=== PATIENT | male | born 1980 | race Caucasian/White ===

== ENCOUNTER 2019-09-17 21:40 | Emergency (ER) | payer OTHER ==
[2019-09-17] MEDS ORDERED: BABY ASPIRIN 81 MG CHEW PO ONE (21:49)
[2019-09-17 22:26] LABS: Absolute Neutrophil Ct (ANC) 5.26 (1.4-6.9); BASOPHIL % 0.4 % (0.0-0.4); Basophil (Absolute #) 0.03 (0-0.4); Eosinophil % 1.7 % (0.00-5.0); Eosinophil (Absolute #) 0.14 (0-0.5); Hematocrit 45.9 % (42-50); Hemoglobin 16.5 gm/dl (12.5-18.0); Lymphocyte (Absolute #) 2.28 (1.0-4.6); Lymphocytes % 27.5 % (24.0-44.0); Mean Cell Volume 88.3 fl (78-100); Mean Corpuscular Hemoglobin 31.7 pg (26-32); Mean Corpuscular Hgb Concent. 35.9 g/dl (32-36); Monocyte (Absolute #) 0.59 (0.0-1.3); Monocytes % 7.1 % (0.0-12.0); Neutrophil % 63.3 % (36.0-66.0); Platelet Count 194 K/mm3 (150-450); Red Cell Distribution Width 12.6 % (11.5-14.0); White Blood Count 8.3 K/mm3 (4.0-10.5)
[2019-09-17 22:38] LABS: ALBUMIN 4.5 g/dL (3.5-5.0); ALKALINE PHOSPHATASE 110 U/L (38-126); ANION GAP 13.5 MEQ/L (5-15); BLOOD UREA NITROGEN 11 mg/dL (9-20); CHLORIDE 101 mmol/L (98-107); Calcium 9.1 mg/dL (8.4-10.2); Carbon Dioxide 27 mmol/L (22-30); Creatinine 1 0.62 mg/dL (0.66-1.25); Glucose 384 mg/dL (74-106); Potassium 3.9 mmol/L (3.5-5.1); SGOT/AST 72 U/L (17-59); SGPT/ALT 159 U/L (0-50); SODIUM 137 mmol/L (137-145); Total Protein 8.1 g/dL (6.3-8.2)
--- NOTE | 2019-09-17 22:39 | ERPHSYRPT ---
- History of Present Illness Time Seen by Provider: 09/17/19 21:50 Historian: patient Exam Limitations: no limitations Patient Subjective Stated Complaint: pt states he has been having chest tightness, lt arm and lt leg pain for the last week Triage Nursing Assessment: pt alert and oriented, answers questions approp. pt ambulatory with steady gait noted. respirations nonlabored with lungs cta. skin pink warm and dry. heart rate 80, sinus rhythm on monitor. Physician History: Patient is a 19-year-old male presents to our ED for evaluation of chest tightness. Patient also experiences an ache of his left lower extremity. Patient has been experiencing symptoms for approximately 1 week. Tightness is associated with an ache of his left arm and leg. No associated nausea or vomiting. No diaphoresis. No trauma. No fevers. Patient denies chest pain per se. No shortness of breath. Pain improved with activity. Patient is currently asymptomatic. He voices no other complaints at this time. Timing/Duration: week(s), intermittent, improved Quality: aching Chest Pain Radiation: arm Severity of Pain-Current: mild Modifying Factors: Improves With: nothing Associated Symptoms: palpitations, No nausea, No abdominal pain, No shortness of breath, No fever, No syncope, No dizziness, No back pain (Patient had a cardiac stress test approximately 5 years ago.) Nitro Today/Relief: no nitro taken today Aspirin Treatment Today: 325 mg x 1, provided by ED Allergies/Adverse Reactions: Penicillins Allergy (Verified 09/17/19 22:02) Home Medications: Canagliflozin/Metformin HCl [Invokamet 50-1,000 mg Tablet] 1 each PO DAILY 09/16 [History] Lisinopril 5 mg [Zestril 5 MG] 5 mg PO DAILY 09/17/19 [History] Hx Tetanus, Diphtheria Vaccination/Date Given: Yes Hx Influenza Vaccination/Date Given: No Hx Pneumococcal Vaccination/Date Given: No Immunizations Up to Date: Yes Travel Risk - International Travel Have you traveled outside of the country in past 3 weeks: No (N) If Yes where:: [facility] - Coronavirus Screening Has patient experienced Coronavirus symptoms: Yes Symptoms experienced: muscle pain - Review of Systems Constitutional: No Fever, No Chills Eyes: No Symptoms Ears, Nose, & Throat: No Symptoms Respiratory: No Symptoms, No Cough, No Dyspnea Cardiac: No Symptoms, No Chest Pain, No Edema, No Syncope Abdominal/Gastrointestinal: No Symptoms, No Abdominal Pain, No Nausea, No Vomiting, No Diarrhea Genitourinary Symptoms: No Dysuria Musculoskeletal: No Symptoms, No Back Pain, No Neck Pain Skin: No Symptoms, No Rash Neurological: No Symptoms, No Dizziness, No Focal Weakness, No Sensory Changes Psychological: No Symptoms Endocrine: No Symptoms All Other Systems: Reviewed and Negative - Past Medical History Pertinent Past Medical History: Yes Cardiac History: Hypertension Endocrine Medical History: Diabetes Type II - Past Surgical History Past Surgical History: Yes Other Surgical History: vasectomy - Social History Smoking Status: Former smoker Drug Use: none Patient Lives Alone: No - Nursing Vital Signs Nursing Vital Signs: Initial Vital Signs Pulse Rate 89 09/17/19 21:41 Respiratory Rate 18 09/17/19 21:41 Blood Pressure 165/104 09/17/19 21:41 O2 Sat by Pulse Oximetry 97 09/17/19 21:41 Pain Scale Pain Intensity 1 - Physical Exam General Appearance: no apparent distress, alert Eye Exam: PERRL/EOMI, eyes nml inspection Ears, Nose, Throat Exam: normal ENT inspection, moist mucous membranes Neck Exam: normal inspection, non-tender, supple, full range of motion Respiratory Exam: normal breath sounds, lungs clear, No respiratory distress Cardiovascular Exam: regular rate/rhythm, normal heart sounds Gastrointestinal/Abdomen Exam: soft, No tenderness, No mass Back Exam: normal inspection, No CVA tenderness, No vertebral tenderness Extremity Exam: normal inspection, normal range of motion Neurologic Exam: alert, oriented x 3, cooperative, normal mood/affect, sensation nml, No motor deficits Skin Exam: normal color, warm, dry SpO2: 97 - Course Nursing assessment & vital signs reviewed: Yes EKG Interpreted by Me: RATE, Sinus Rhythm, NORMAL AXIS, NORMAL INTERVALS - Radiology Exams Chest X-ray Interpretation: Interpreted by me (No effusion pneumothorax. No consolidation infiltrates. No bony pathology. Normal-appearing chest x-ray.) Ordered Tests: Active Orders 24 hr Category Date Time Status Currency Machine Operator STAT Care 09/17/19 21:50 Active Clean Catch Urine Specimen STAT Care 09/17/19 21:49 Active EKG-ER Only STAT Care 09/17/19 21:49 Active IV Insertion STAT Care 09/17/19 21:49 Active Isolation, Initiate & Maintain Q12H Care 09/17/19 22:01 Active Pulse Oximetry (ED) STAT Care 09/17/19 21:49 Active CHEST 1 VIEW (PORTABLE) Stat Exams 09/17/19 21:50 Taken CBC W DIFF Stat Lab 09/17/19 22:20 Completed CMP Stat Lab 09/17/19 22:20 Completed D-DIMER QUANTITATIVE Stat Lab 09/17/19 22:20 Completed LIPASE Stat Lab 09/17/19 22:20 Completed TROPONIN Q3H Lab 09/17/19 22:20 Completed TROPONIN Q3H Lab 09/18/19 01:00 Ordered TROPONIN Q3H Lab 09/18/19 04:00 Ordered TROPONIN Q3H Lab 09/18/19 07:00 Ordered TROPONIN Q3H Lab 09/18/19 10:00 Ordered Urine Triage Profile Stat Lab 09/17/19 22:50 Received Medication Summary Generic Name Dose Route Start Last Admin Trade Name Freq PRN Reason Stop Dose Admin Sodium Chloride 1,000 mls @ 999 mls/hr 09/17/19 22:44 09/17/19 22:49 Sodium Chloride 0.9% 1000 Ml IV 09/17/19 23:44 999 mls/hr .Q1H1M STA Administration Discontinued Medications Generic Name Dose Route Start Last Admin Trade Name Freq PRN Reason Stop Dose Admin Aspirin 324 mg 09/17/19 21:49 09/17/19 22:03 Baby Aspirin 81 Mg Chew PO 09/17/19 21:50 324 mg STAT ONE Administration Sodium Chloride Confirm 09/17/19 22:46 Sodium Chloride 0.9% 1000 Ml Administered 09/17/19 22:47 Dose 1,000 mls @ ud .ROUTE .STK-MED ONE Lab/Rad Data: Laboratory Result Diagrams 09/17/19 22:20 09/17/19 22:20 Laboratory Results 09/17/19 09/17/19 09/17/19 Range/Units 22:20 22:20 22:20 WBC (4.0-10.5) K/mm3 RBC (4.1-5.6) M/mm3 Hgb (12.5-18.0) gm/dl Hct (42-50) % MCV (78-100) fl MCH (26-32) pg MCHC (32-36) g/dl RDW (11.5-14.0) % Plt Count (150-450) K/mm3 MPV (7.5-11.0) fl Gran % (36.0-66.0) % Eos # (Auto) (0-0.5) Absolute Lymphs (auto) (1.0-4.6) Absolute Monos (auto) (0.0-1.3) Lymphocytes % (24.0-44.0) % Monocytes % (0.0-12.0) % Eosinophils % (0.00-5.0) % Basophils % (0.0-0.4) % Absolute Granulocytes (1.4-6.9) Basophils # (0-0.4) D-Dimer 306 (215-500) ng/mL Sodium (137-145) mmol/L Potassium (3.5-5.1) mmol/L Chloride (98-107) mmol/L Carbon Dioxide (22-30) mmol/L Anion Gap (5-15) MEQ/L BUN (9-20) mg/dL Creatinine (0.66-1.25) mg/dL Estimated GFR ML/MIN Glucose (74-106) mg/dL Calcium (8.4-10.2) mg/dL Total Bilirubin (0.2-1.3) mg/dL AST (17-59) U/L ALT (0-50) U/L Alkaline Phosphatase (38-126) U/L Troponin I < 0.012 (0.000-0.034) ng/mL Serum Total Protein (6.3-8.2) g/dL Albumin (3.5-5.0) g/dL Lipase 102 (23-300) U/L 09/17/19 09/17/19 Range/Units 22:20 22:20 WBC 8.3 (4.0-10.5) K/mm3 RBC 5.20 (4.1-5.6) M/mm3 Hgb 16.5 (12.5-18.0) gm/dl Hct 45.9 (42-50) % MCV 88.3 (78-100) fl MCH 31.7 (26-32) pg MCHC 35.9 (32-36) g/dl RDW 12.6 (11.5-14.0) % Plt Count 194 (150-450) K/mm3 MPV 12.0 H (7.5-11.0) fl Gran % 63.3 (36.0-66.0) % Eos # (Auto) 0.14 (0-0.5) Absolute Lymphs (auto) 2.28 (1.0-4.6) Absolute Monos (auto) 0.59 (0.0-1.3) Lymphocytes % 27.5 (24.0-44.0) % Monocytes % 7.1 (0.0-12.0) % Eosinophils % 1.7 (0.00-5.0) % Basophils % 0.4 (0.0-0.4) % Absolute Granulocytes 5.26 (1.4-6.9) Basophils # 0.03 (0-0.4) D-Dimer (215-500) ng/mL Sodium 137 (137-145) mmol/L Potassium 3.9 (3.5-5.1) mmol/L Chloride 101 (98-107) mmol/L Carbon Dioxide 27 (22-30) mmol/L Anion Gap 13.5 (5-15) MEQ/L BUN 11 (9-20) mg/dL Creatinine 0.62 L (0.66-1.25) mg/dL Estimated GFR > 60.0 ML/MIN Glucose 384 H (74-106) mg/dL Calcium 9.1 (8.4-10.2) mg/dL Total Bilirubin 0.90 (0.2-1.3) mg/dL AST 72 H (17-59) U/L ALT 159 H (0-50) U/L Alkaline Phosphatase 110 (38-126) U/L Troponin I (0.000-0.034) ng/mL Serum Total Protein 8.1 (6.3-8.2) g/dL Albumin 4.5 (3.5-5.0) g/dL Lipase (23-300) U/L - Progress Progress: improved Progress Note: 09/17/19 23:23 Patient reassessed. Blood pressure normalized. Patient currently asymptomatic. Initial troponin negative. EKG negative for acute pathology. Work-up reveals hyper glycemia. Patient decided he prefers to go home. Patient declined second troponin. We complaint the patient that his sugars are elevated however patient states that he will follow-up with his primary care doctor reassesses blood sugar levels. Patient is requesting discharge he states that he will be calling his to pick him up. Patient is of sound mind. He is alert and oriented x4. Patient appropriate to make independent and informed medical decisions. Patient understands the risks of increased morbidity, increased mortality, increased short and long-term disability including . Patient understands that these risks are possible because of leaving prematurely before completion of complete examination. Counseled pt/family regarding: lab results, diagnosis, need for follow-up, rad results - Departure Departure Disposition: AMA Clinical Impression: ACS (acute coronary syndrome), Chest pain, Hyperglycemia, Heart palpitations Condition: Stable Critical Care Time: No Referrals: EZEQUIEL GRISSOM [Primary Care Provider] - Additional Instructions: Please follow-up with your family doctor within 48 hours for reevaluation. Please be sure to take all of your diabetic medication as prescribed. You may require an outpatient cardiac stress test. Please follow-up with your family physician to consider further work-up heart. Discharge/Care Plan JOSE DAILEY was seen on 09/17/19 in the Emergency Room. The patient was counseled regarding Diagnosis,Lab results, Imaging studies, need for follow up and when to return to the Emergency Room. Prescriptions given: Discharge Note I have spoken with the patient and/or caregivers. I have explained the patient' s condition, diagnosis and treatment plan based on the information available to me at this time. I have answered the patient's and/or caregiver's questions and addressed any concerns. The patient and/or caregivers have as good understanding of the patient's diagnosis, condition and treatment plan as can be expected at this point. The vital signs have been stable. The patient's condition is stable and appropriate for discharge from the emergency department. The patient will pursue further outpatient evaluation with the primary care physician or other designated or consulting physician as outlined in the discharge instructions. The patient and/or caregivers are agreeable to this plan of care and follow-up instructions have been explained in detail. The patient and/or caregivers have received these instruction. The patient/and or caregivers are aware that any significant change in condition or worsening of symptoms should prompt an immediate return to this or the closest emergency department or call 911.
[2019-09-17] MEDS ORDERED: Sodium Chloride 0.9% 1000 ML 1,000 ML IV STA (22:44)
[2019-09-17] MEDS ORDERED: Sodium Chloride 0.9% 1000 ML 1,000 ML ONE (22:46)
[2019-09-17 23:17] LABS: Amphetamine,Urine NEGATIVE (NEGATIVE); Barbiturate,Urine NEGATIVE (NEGATIVE); Benzodiazepine,Urine NEGATIVE (NEGATIVE); Cocaine,Urine NEGATIVE (NEGATIVE); Methadone,Urine NEGATIVE (NEGATIVE); Opiate,Urine NEGATIVE (NEGATIVE); PCP,Urine NEGATIVE (NEGATIVE); THC,Urine NEGATIVE (NEGATIVE)
[2019-09-17 23:45] VITALS: BP 130/81; PULSE 74; O2SAT 99
--- NOTE | 2019-09-18 07:28 | XRAY ---
Indication: Chest pain. Comparison: None Portable chest demonstrates normal heart, lungs, and bony thorax.
== END 2019-09-17 23:50 | disposition left against medical advice (07) ==
LOC: ED 21:40
DX: I24.9 Acute ischemic heart disease, unspecified (principal); R07.9 Chest pain, unspecified; R00.2 Palpitations; Z79.899 Other long term (current) drug therapy; I10 Essential (primary) hypertension; E11.65 Type 2 diabetes mellitus with hyperglycemia
CPT/HCPCS: 36000; 36415; 71045; 80053; 80307; 83690; 84484; 85025; 85379; 93005; 93041; 94760; 96360; 99284; A9270-GY

== ENCOUNTER 2022-03-19 22:57 | Emergency (ER) | payer BC, OTHER ==
[2022-03-19] MEDS ORDERED: BABY ASPIRIN 81 MG CHEW PO ONE ×2 (23:12→23:22)
[2022-03-19] MEDS ORDERED: Sodium Chloride 0.9% 1000 ML 1,000 ML IV STA (23:12)
[2022-03-19 23:25] LABS: Absolute Neutrophil Ct (ANC) 4.02 x10^3/uL (1.4-6.9); Basophil (Absolute #) 0.04 x10^3/uL (0-0.4); Eosinophil % 1.9 % (0.00-5.0); Eosinophil (Absolute #) 0.12 x10^3/uL (0-0.5); Hematocrit 46.2 % (42-50); Hemoglobin 16.3 g/dL (12.5-18.0); Lymphocyte (Absolute #) 1.81 x10^3/uL (1.0-4.6); Mean Cell Volume 89.9 fL (78-100); Mean Corpuscular Hemoglobin 31.7 pg (26-32); Mean Corpuscular Hgb Concent. 35.3 g/dL (32-36); Mean Platelet Volume 10.7 fL (7.5-11.0); Monocyte (Absolute #) 0.47 x10^3/uL (0.0-1.3); Monocytes % 7.3 % (0.0-12.0); Platelet Count 205 x10^3/uL (150-450); Red Blood Count 5.14 x10^6/uL (4.1-5.6); Red Cell Distribution Width 12.2 % (11.5-14.0); White Blood Count 6.5 x10^3/uL (4.0-10.5)
[2022-03-19] MEDS ORDERED: Sodium Chloride 0.9% 1000 ML 1,000 ML ONE (23:27)
[2022-03-19] MEDS ORDERED: SUBLIMAZE 100 MCG/2 ML ONE (23:27)
[2022-03-19] MEDS ORDERED: BABY ASPIRIN 81 MG CHEW ONE (23:27)
[2022-03-19] MEDS: SUBLIMAZE 100 MCG/2 ML IV ONE (23:29)
[2022-03-19 23:39] LABS: ALBUMIN 4.8 g/dL (3.5-5.0); ALKALINE PHOSPHATASE 97 U/L (38-126); AMYLASE 95 U/L (30-110); ANION GAP 14.5 MEQ/L (5-15); BLOOD UREA NITROGEN 14 mg/dL (9-20); CHLORIDE 103 mmol/L (98-107); Calcium 8.9 mg/dL (8.4-10.2); Carbon Dioxide 24 mmol/L (22-30); Creatinine 1 0.67 mg/dL (0.66-1.25); EST GLOMERULAR FILTRATION RATE > 60.0 ML/MIN; Glucose 189 mg/dL (74-106); LIPASE 145 U/L (23-300); MAGNESIUM 2.1 mg/dL (1.6-2.3); NT PRO BNP 16.7 pg/mL (0-450); Potassium 3.8 mmol/L (3.5-5.1); SGOT/AST 69 U/L (17-59); SGPT/ALT 129 U/L (0-50); SODIUM 138 mmol/L (137-145); Total Protein 8.2 g/dL (6.3-8.2)
[2022-03-19 23:41] LABS: D-DIMER QUANTITATIVE < 0.19 mg/L (0.0-0.50); INR 0.98 (0.8-3.0); PROTIME 10.4 SECONDS (9.4-12.5)
[2022-03-20 00:09] VITALS: BP 123/59; PULSE 67; O2SAT 96
--- NOTE | 2022-03-20 00:36 | ERPHSYRPT ---
- History of Present Illness Time Seen by Provider: 03/19/22 23:05 Historian: patient Exam Limitations: no limitations Patient Subjective Stated Complaint: I had some left arm pain and tingling sensation and it came across into my chest, my heart felt fluttery and I had so me dizziness. Triage Nursing Assessment: Pt ambulated into ER without diff, at bedside. Pt c/o left arm tingling which came across to the chest and was midsternal, had some sob, dizziness and felt as is if heart was fluttery. Pt alert and oriented x3, pleasant and cooperative. Lung hardin clear, heart tones reg. Pt denies any actual pain at this time. Physician History: Patient is a 41-year-old male diabetic who presents with a complaint of chest pain. He says it started with aching in his left arm progressed to substernal chest pain associated with some dizziness and shortness of breath. He had some nausea but has had no vomiting. He has had similar episodes in the past and work-ups have been negative. He has been told to see a datastage consultant but has not. Timing/Duration: today Activities at Onset: activity, emotional stress Quality: fullness, pressure, throbbing Location: substernal Chest Pain Radiation: arm Severity of Pain-Max: moderate Severity of Pain-Current: mild Modifying Factors: Improves With: rest, aspirin Associated Symptoms: palpitations, dizziness Prior Chest Pain/Cardiac Workup: no prior cardiac workup Nitro Today/Relief: no nitro taken today Aspirin Treatment Today: 81 mg x 1, provided at home Allergies/Adverse Reactions: Penicillins Allergy (Verified 03/19/22 23:13) Home Medications: Lisinopril 5 mg [Zestril 5 MG] 10 mg PO DAILY 09/17/19 [History] Dapagliflozin Propanediol [Farxiga] 5 mg PO DAILY 03/19/22 [History] Glimepiride 2 mg [Amaryl 2 MG] 1 tab PO DAILY 03/19/22 [History] Metformin HCl [Metformin HCl ER] 1,000 mg PO DAILY 03/19/22 [History] Hx Tetanus, Diphtheria Vaccination/Date Given: Yes Hx Influenza Vaccination/Date Given: No Hx Pneumococcal Vaccination/Date Given: No Immunizations Up to Date: Yes Travel Risk - International Travel Have you traveled outside of the country in past 3 weeks: No - Coronavirus Screening Are you exhibiting any of the following symptoms?: No Close contact with a COVID-19 positive Pt in past 14-21 Days: No - Vaccine Status Have you recieved a Covid-19 vaccination: No - Review of Systems Constitutional: No Fever, No Chills Eyes: No Symptoms Ears, Nose, & Throat: No Symptoms Respiratory: Dyspnea, No Cough Cardiac: Chest Pain, No Edema, No Syncope Abdominal/Gastrointestinal: No Abdominal Pain, No Nausea, No Vomiting, No Diarrhea Genitourinary Symptoms: No Dysuria Musculoskeletal: No Back Pain, No Neck Pain Skin: No Rash Neurological: No Dizziness, No Focal Weakness, No Sensory Changes Psychological: No Symptoms Endocrine: No Symptoms All Other Systems: Reviewed and Negative - Past Medical History Pertinent Past Medical History: Yes Cardiac History: Hypertension Endocrine Medical History: Diabetes Type II - Past Surgical History Past Surgical History: Yes Other Surgical History: vasectomy. tubes in ears - Social History Smoking Status: Never smoker Exposure to second hand smoke: Yes Drug Use: none Patient Lives Alone: No - Nursing Vital Signs Nursing Vital Signs: Initial Vital Signs Temperature 98.0 F 03/19/22 23:00 Pulse Rate 60 03/19/22 23:00 Respiratory Rate 18 03/19/22 23:00 Blood Pressure 147/81 03/19/22 23:00 O2 Sat by Pulse Oximetry 98 03/19/22 23:00 Pain Scale Pain Intensity 0 - Physical Exam General Appearance: mild distress, alert Eye Exam: PERRL/EOMI, eyes nml inspection Ears, Nose, Throat Exam: normal ENT inspection, moist mucous membranes Neck Exam: normal inspection, non-tender, supple, full range of motion Respiratory Exam: normal breath sounds, lungs clear, No respiratory distress Cardiovascular Exam: regular rate/rhythm, normal heart sounds Gastrointestinal/Abdomen Exam: soft, No tenderness, No mass Back Exam: normal inspection, No CVA tenderness, No vertebral tenderness Extremity Exam: normal inspection, normal range of motion Neurologic Exam: alert, oriented x 3, cooperative, normal mood/affect, sensation nml, No motor deficits Skin Exam: normal color, warm, dry SpO2 Interpretation: normal SpO2: 96 O2 Delivery: Room Air - Course Nursing assessment & vital signs reviewed: Yes EKG Interpreted by Me: RATE (65), NORMAL AXIS, NORMAL INTERVALS, NORMAL QRS, NORMAL ST-T - Radiology Exams Chest X-ray Interpretation: Negative Ordered Tests: Active Orders 24 hr Category Date Time Status EKG-ER Only STAT Care 03/19/22 23:12 Active IV Insertion STAT Care 03/19/22 23:12 Active CHEST 1 VIEW (PORTABLE) Stat Exams 03/19/22 23:13 Taken AMYLASE Stat Lab 03/19/22 23:11 Completed CBC W DIFF Stat Lab 03/19/22 23:11 Completed CMP Stat Lab 03/19/22 23:11 Completed D-DIMER QUANTITATIVE Stat Lab 03/19/22 23:11 Completed LIPASE Stat Lab 03/19/22 23:11 Completed Lactic Acid Stat Lab 03/19/22 23:49 Completed MAGNESIUM Stat Lab 03/19/22 23:11 Completed NT PRO BNP Stat Lab 03/19/22 23:11 Completed PROTIME WITH INR Stat Lab 03/19/22 23:11 Completed TROPONIN Q4H Lab 03/19/22 23:11 Completed TROPONIN Q4H Lab 03/20/22 03:15 Ordered TROPONIN Q4H Lab 03/20/22 07:15 Ordered UA W/RFX CULTURE Stat Lab 03/19/22 Ordered Medication Summary Discontinued Medications Generic Name Dose Route Start Last Admin Trade Name Freq PRN Reason Stop Dose Admin Aspirin 162 mg 03/19/22 23:12 03/19/22 23:29 Aspirin 81 Mg Tab.Chew PO 03/19/22 23:13 162 mg STAT ONE Administration Aspirin 81 mg 03/19/22 23:22 03/19/22 23:29 Aspirin 81 Mg Tab.Chew PO 03/19/22 23:23 81 mg STAT ONE Administration Aspirin Confirm 03/19/22 23:27 Aspirin 81 Mg Tab.Chew Administered 03/19/22 23:28 Dose 243 mg .ROUTE .STK-MED ONE Fentanyl Citrate 25 mcg 03/19/22 23:12 03/19/22 23:29 Fentanyl Citrate 100 Mcg/2 Ml* Vial IV 03/19/22 23:13 25 mcg STAT ONE Administration Fentanyl Citrate Confirm 03/19/22 23:27 Fentanyl Citrate 100 Mcg/2 Ml* Vial Administered 03/19/22 23:28 Dose 100 mcg .ROUTE .STK-MED ONE Sodium Chloride 1,000 mls @ 999 mls/hr 03/19/22 23:12 03/19/22 23:29 Sodium Chloride 0.9% 1000 Ml IV 03/20/22 00:12 999 mls/hr .Q1H1M STA Administration Sodium Chloride Confirm 03/19/22 23:27 Sodium Chloride 0.9% 1000 Ml Administered 03/19/22 23:28 Dose 1,000 mls @ ud .ROUTE .STK-MED ONE Lab/Rad Data: Laboratory Result Diagrams 03/19/22 23:11 03/19/22 23:11 Laboratory Results 03/19/22 03/19/22 03/19/22 Range/Units 23:49 23:11 23:11 WBC (4.0-10.5) x10^3/uL RBC (4.1-5.6) x10^6/uL Hgb (12.5-18.0) g/dL Hct (42-50) % MCV (78-100) fL MCH (26-32) pg MCHC (32-36) g/dL RDW (11.5-14.0) % Plt Count (150-450) x10^3/uL MPV (7.5-11.0) fL Gran % (36.0-66.0) % Immature Gran % (Auto) (0.00-0.4) % Nucleat RBC Rel Count (0.00-0.1) % Eos # (Auto) (0-0.5) x10^3/uL Immature Gran # (Auto) (0.00-0.03) x10^3u/L Absolute Lymphs (auto) (1.0-4.6) x10^3/uL Absolute Monos (auto) (0.0-1.3) x10^3/uL Absolute Nucleated RBC (0.00-0.01) x10^3u/L Lymphocytes % (24.0-44.0) % Monocytes % (0.0-12.0) % Eosinophils % (0.00-5.0) % Basophils % (0.0-0.4) % Absolute Granulocytes (1.4-6.9) x10^3/uL Basophils # (0-0.4) x10^3/uL PT 10.4 (9.4-12.5) SECONDS INR 0.98 (0.8-3.0) D-Dimer < 0.19 (0.0-0.50) mg/L Sodium (137-145) mmol/L Potassium (3.5-5.1) mmol/L Chloride (98-107) mmol/L Carbon Dioxide (22-30) mmol/L Anion Gap (5-15) MEQ/L BUN (9-20) mg/dL Creatinine (0.66-1.25) mg/dL Estimated GFR ML/MIN Glucose (74-106) mg/dL Lactic Acid 1.3 (0.4-2.0) Calcium (8.4-10.2) mg/dL Magnesium (1.6-2.3) mg/dL Total Bilirubin (0.2-1.3) mg/dL AST (17-59) U/L ALT (0-50) U/L Alkaline Phosphatase (38-126) U/L Troponin I < 0.012 (0.000-0.034) ng/mL NT-Pro-B Natriuret Pep (0-450) pg/mL Serum Total Protein (6.3-8.2) g/dL Albumin (3.5-5.0) g/dL Amylase (30-110) U/L Lipase (23-300) U/L 03/19/22 03/19/22 Range/Units 23:11 23:11 WBC 6.5 (4.0-10.5) x10^3/uL RBC 5.14 (4.1-5.6) x10^6/uL Hgb 16.3 (12.5-18.0) g/dL Hct 46.2 (42-50) % MCV 89.9 (78-100) fL MCH 31.7 (26-32) pg MCHC 35.3 (32-36) g/dL RDW 12.2 (11.5-14.0) % Plt Count 205 (150-450) x10^3/uL MPV 10.7 (7.5-11.0) fL Gran % 62.0 (36.0-66.0) % Immature Gran % (Auto) 0.2 (0.00-0.4) % Nucleat RBC Rel Count 0.0 (0.00-0.1) % Eos # (Auto) 0.12 (0-0.5) x10^3/uL Immature Gran # (Auto) 0.01 (0.00-0.03) x10^3u/L Absolute Lymphs (auto) 1.81 (1.0-4.6) x10^3/uL Absolute Monos (auto) 0.47 (0.0-1.3) x10^3/uL Absolute Nucleated RBC 0.00 (0.00-0.01) x10^3u/L Lymphocytes % 28.0 (24.0-44.0) % Monocytes % 7.3 (0.0-12.0) % Eosinophils % 1.9 (0.00-5.0) % Basophils % 0.6 (0.0-0.4) % Absolute Granulocytes 4.02 (1.4-6.9) x10^3/uL Basophils # 0.04 (0-0.4) x10^3/uL PT (9.4-12.5) SECONDS INR (0.8-3.0) D-Dimer (0.0-0.50) mg/L Sodium 138 (137-145) mmol/L Potassium 3.8 (3.5-5.1) mmol/L Chloride 103 (98-107) mmol/L Carbon Dioxide 24 (22-30) mmol/L Anion Gap 14.5 (5-15) MEQ/L BUN 14 (9-20) mg/dL Creatinine 0.67 (0.66-1.25) mg/dL Estimated GFR > 60.0 ML/MIN Glucose 189 H (74-106) mg/dL Lactic Acid (0.4-2.0) Calcium 8.9 (8.4-10.2) mg/dL Magnesium 2.1 (1.6-2.3) mg/dL Total Bilirubin 0.60 (0.2-1.3) mg/dL AST 69 H (17-59) U/L ALT 129 H (0-50) U/L Alkaline Phosphatase 97 (38-126) U/L Troponin I (0.000-0.034) ng/mL NT-Pro-B Natriuret Pep 16.7 (0-450) pg/mL Serum Total Protein 8.2 (6.3-8.2) g/dL Albumin 4.8 (3.5-5.0) g/dL Amylase 95 (30-110) U/L Lipase 145 (23-300) U/L - Progress Progress: improved Air Movement: good Blood Culture(s) Obtained: No Antibiotics given: No - Departure Departure Disposition: Home Clinical Impression: Chest pain Condition: Stable Critical Care Time: No Referrals: EZEQUIEL GRISSOM [Primary Care Provider] - Follow up/PCP as directed Instructions: Chest Pain (DC)
[2022-03-20] MEDS: SUBLIMAZE 100 MCG/2 ML IV ONE (00:52)
--- NOTE | 2022-03-20 09:04 | XRAY ---
Indication: Chest pain. Comparison: September 17, 2019 Portable chest again demonstrates normal heart and lungs. Bony thorax intact. No new/acute findings.
== END 2022-03-20 00:49 | disposition home or self-care (01) ==
LOC: ED 22:57
DX: R07.9 Chest pain, unspecified (principal); R42 Dizziness and giddiness; R06.02 Shortness of breath; R11.0 Nausea; I10 Essential (primary) hypertension; E11.9 Type 2 diabetes mellitus without complications; Z79.84 Long term (current) use of oral hypoglycemic drugs; Z79.899 Other long term (current) drug therapy; Z28.310 Unvaccinated for COVID-19
CPT/HCPCS: 36000; 36415; 71045; 80053; 82150; 83605; 83690; 83735; 83880; 84484; 85025; 85379; 85610; 93005; 96374; 99284; J3010; A9270-GY